=== PATIENT | female | born 1985 | race Hispanic/Latino ===

== ENCOUNTER 2018-03-05 16:44 | Outpatient (CLI) | payer MEDICAID, OTHER | END 2018-03-05 18:47 | disposition home or self-care (01) | LOC: LAB 16:44 → TRG 16:44 | PROVIDERS: ATTEND Obstetrics & Gynecology | DX: O47.02 False labor before 37 completed weeks of gestation, second trimester (principal); O36.012 Maternal care for anti-D [Rh] antibodies, second trimester; O99.512 Diseases of the respiratory system complicating pregnancy, second trimester; J45.909 Unspecified asthma, uncomplicated; Z3A.27 27 weeks gestation of pregnancy | CPT/HCPCS: 86850; 86900; 86901; 96372; J2790 ==